=== PATIENT | male | born 1990 | race American Indian/Alaskan Native ===

== ENCOUNTER 2020-02-22 19:27 | Emergency (ER) | payer SELFPAY ==
[2020-02-22 19:59] VITALS: BP 121/71
--- NOTE | 2020-02-22 20:41 | XRay Report ---
RIGHT FOOT 3 VIEW(S) INDICATION / CLINICAL INFORMATION: foriegn body right foot COMPARISON: None available. FINDINGS: BONES / JOINT(S): No acute fracture or subluxation. No significant arthritis. SOFT TISSUES: Within the plantar soft tissues between the second and third tarsometatarsal joints, th ere is a 1.5 x 0.3 cm triangular-shaped foreign body most compatible with a glass shard. Signer Name: Zack Yap MD Signed: 02/22/2020 8:37 PM Workstation Name: [id number]
--- NOTE | 2020-02-22 21:16 | Emergency Department Report ---
ED General Adult HPI - General Chief complaint: Skin/Abscess/Foreign Body Stated complaint: GLASS IN RT FOOT Time Seen by Provider: 02/22/20 21:00 Source: patient Mode of arrival: Ambulatory Limitations: No Limitations - History of Present Illness Initial comments: 29-year-old -[place] male patient presents with complaints of glass foreign body to the bottom of the right foot x3 weeks. Patient states he stepped on broken glass and pulled out a large piece of glass at that time, however he did not realize there was a smaller piece left in his foot until a few days ago when it began to hurt and push through his skin. Patient states his last tetanus vaccination was 1 year ago. He denies any fever/chills/sweats, numbness/tingling/weakness in his foot, or purulent drainage or redness. - Related Data Previous Rx's Medication Instructions Recorded Last Taken Type Ibuprofen [Motrin 800 MG tab] 800 mg PO Q8HR PRN #21 tablet 02/22/20 Unknown Rx Mupirocin [Bactroban 2% OINT] 1 applic TP TID 7 Days #1 tube 02/22/20 Unknown Rx cephALEXin [Keflex] 500 mg PO Q8HR 7 Days #21 cap 02/22/20 Unknown Rx Allergies Allergy/AdvReac Type Severity Reaction Status Date / Time No Known Allergies Allergy Unverified 02/22/20 20:00 ED Review of Systems ROS: Stated complaint: GLASS IN RT FOOT Other details as noted in HPI ED Past Medical Hx - Past Medical History Previous Medical History?: No - Surgical History Past Surgical History?: No - Social History Smoking Status: Current Every Day Smoker Substance Use Type: None - Medications Home Medications: Home Medications Medication Instructions Recorded Confirmed Last Taken Type Ibuprofen [Motrin 800 MG tab] 800 mg PO Q8HR PRN #21 tablet 02/22/20 Unknown Rx Mupirocin [Bactroban 2% OINT] 1 applic TP TID 7 Days #1 tube 02/22/20 Unknown Rx cephALEXin [Keflex] 500 mg PO Q8HR 7 Days #21 cap 02/22/20 Unknown Rx ED Physical Exam - General Limitations: No Limitations General appearance: alert, in no apparent distress - Head Head exam: Present: atraumatic, normocephalic - Eye Eye exam: Present: normal appearance. Absent: scleral icterus - ENT ENT exam: Present: normal exam - Neck Neck exam: Present: normal inspection, full ROM - Respiratory Respiratory exam: Present: normal lung sounds bilaterally. Absent: respiratory distress - Cardiovascular Cardiovascular Exam: Present: regular rate - Neurological Exam Neurological exam: Present: alert, oriented X3 - Psychiatric Psychiatric exam: Present: normal affect, normal mood - Skin Skin exam: Present: warm, dry, normal color, other (Tiny opening noted to bottom of distal right foot with possible foreign body noted protruding through. Area is tender to palpation without purulent drainage or surrounding erythema.) ED Course Vital Signs 02/22/20 02/22/20 19:54 21:25 Temperature 98.2 F Pulse Rate 89 52 L Respiratory 18 16 Rate Blood Pressure 121/71 O2 Sat by Pulse 96 97 Oximetry - Procedure Description Procedures done: Area was prepped with Betadine. 4 cc of lidocaine 1% without epi used to anesthetize area. 10 blade use to make 0.5 cm incision. Approximately 1 cm triangular glass shard removed. 50 cc of saline mixed with Betadine used to irrigate wound thoroughly. 3 simple sutures were placed using 4-0 Prolene. Minimal bleeding occurred. Patient tolerated procedure well. Normal perfusion and range of motion of foot and toes post procedure noted ED Medical Decision Making - Radiology Data Radiology results: report reviewed RIGHT FOOT 3 VIEW(S) INDICATION / CLINICAL INFORMATION: foriegn body right foot COMPARISON: None available. FINDINGS: BONES / JOINT(S): No acute fracture or subluxation. No significant arthritis. SOFT TISSUES: Within the plantar soft tissues between the second and third tarsometatarsal joints, there is a 1.5 x 0.3 cm triangular-shaped foreign body most compatible with a glass shard. - Medical Decision Making 29-year-old -[place] male patient presents with complaints of glass foreign body to the bottom of the right foot x3 weeks. Patient states he stepped on broken glass and pulled out a large piece of glass at that time, however he did not realize there was a smaller piece left in his foot until a few days ago when it began to hurt and push through his skin. Patient states his last tetanus vaccination was 1 year ago. He denies any fever/chills/sweats, numbness/tingling/weakness in his foot, or purulent drainage or redness. Glass foreign body noted on x-ray. Single piece of trying to the last was removed successfully from the foot and sutures were placed. Patient tolerated procedure well. He has normal range of motion and perfusion of the foot and toes post procedure. Patient instructed to return to the ED in 7 days for suture removal. Prescription for Keflex and mupirocin given for prophylaxis. Wound care and strict return precautions were discussed in great detail with patient who verbalizes understanding. Critical care attestation.: If time is entered above; I have spent that time in minutes in the direct care of this critically ill patient, excluding procedure time. ED Disposition Clinical Impression: Foreign body in foot Qualifiers: Encounter type: initial encounter Laterality: right Qualified Code(s): S90.851A - Superficial foreign body, right foot, initial encounter Disposition: TO HOME OR SELFCARE Is pt being admited?: No Condition: Stable Instructions: Soft Tissue Foreign Body (ED) Prescriptions: Mupirocin [Bactroban 2% OINT] 1 applic TP TID 7 Days #1 tube cephALEXin [Keflex] 500 mg PO Q8HR 7 Days #21 cap Ibuprofen [Motrin 800 MG tab] 800 mg PO Q8HR PRN #21 tablet PRN Reason: pain Referrals: JENNYFER TOWNSEND MD [Staff Physician] - 2-3 Days (Please follow-up for further evaluation)
== END 2020-02-22 21:25 | disposition home or self-care (01) ==
LOC: ED 19:27
DX: S90.851A Superficial foreign body, right foot, initial encounter (principal); F17.200 Nicotine dependence, unspecified, uncomplicated; X58.XXXA Exposure to other specified factors, initial encounter; Y93.89 Activity, other specified; Y92.89 Other specified places as the place of occurrence of the external cause; Y99.8 Other external cause status